=== PATIENT | female | born 1970 | race Caucasian/White ===

== ENCOUNTER 2023-09-01 18:23 | Inpatient (IN) | payer MEDICAID, OTHER ==
[~2023-09-01] VITALS: Ht 167.6 cm; Wt 90.0 kg
[2023-09-01 18:54] LABS: CLARITY URINE CLEAR (CLEAR); COLOR URINE YELLOW (YELLOW); GLUCOSE URINE 3+ (NEGATIVE); KETONES URINE TRACE (NEGATIVE); LEUKOCYTE ESTERASE URINE NEGATIVE (NEGATIVE); NITRITE URINE NEGATIVE (NEGATIVE); OCCULT BLOOD URINE NEGATIVE (NEGATIVE); PROTEIN URINE NEGATIVE (NEGATIVE); SPECIFIC GRAVITY URINE 1.038 (1.005-1.030); UROBILINOGEN URINE 0.2 E.U./dL (0.2-1.0)
[2023-09-01 19:23] LABS: BASOPHILS % 0.4 % (0.0-2.0); EOSINOPHILS % 1.8 % (0.0-5.0); HEMATOCRIT. 43.9 % (36.0-48.0); HEMOGLOBIN. 14.1 g/dL (12.0-16.0); LYMPHOCYTES % 30.5 % (20.0-50.0); MEAN CORPUSCULAR HEMOGLOBIN 27.3 pg (28.0-32.0); MEAN CORPUSCULAR VOLUME 85.4 fL (81.0-99.0); MEAN PLATELET VOLUME 11.6 fl (7.4-10.4); MONOCYTES % 7.2 % (2.0-8.0); NEUTROPHILS % 60.1 % (40.0-76.0); PLATELET 144 x1000/uL (130-400); RED BLOOD CELL COUNT 5.15 mill/uL (4.2-5.4); RED CELL DISTRIBUTION WIDTH 14.5 % (11.6-14.6); WHITE BLOOD COUNT 6.9 x1000/uL (4.5-11.0)
[2023-09-01 19:27] LABS: CHLORIDE 91 mEq/L (98-107); POTASSIUM 4.3 mEq/L (3.5-5.1); SODIUM 124 mEq/L (136-145)
[2023-09-01 19:28] LABS: CALCIUM 9.1 mg/dL (8.7-10.4); CARBON DIOXIDE 25 mEq/L (21-32)
[2023-09-01 19:29] LABS: RBC URINE NONE SEEN /hpf (0-2); WBC URINE NONE SEEN /hpf (0-2)
[2023-09-01 19:30] LABS: BACTERIA URINE NONE SEEN; SQUAMOUS EPITHELIAL CELL URINE NONE SEEN /lpf (RARE/1+)
[2023-09-01 19:33] LABS: CREATININE 1.3 mg/dL (0.6-1.0); UREA NITROGEN BLOOD 7 mg/dL (9-23)
[2023-09-01 19:35] LABS: ALANINE AMINOTRANSFERASE 34 IU/L (10-49); ALBUMIN 4.4 g/dL (3.2-4.8); ASPARTATE AMINOTRANSFERASE 31 IU/L (<34); BILIRUBIN DIRECT 0.1 mg/dL (<=3.0); BILIRUBIN TOTAL 0.5 mg/dL (0.1-1.0); PROTEIN TOTAL 7.3 g/dL (6.0-8.3)
[2023-09-01 19:46] LABS: GLUCOSE 701 mg/dL (70-105)
[2023-09-01] MEDS: INSULIN REGULAR (HUMULIN R) 300UNITS/3ML VIAL IV ONE (21:45)
[2023-09-01] MEDS: SODIUM CHLORIDE 0.9% 1,000 ML IV ONE (22:41)
[2023-09-02] MEDS: SODIUM CHLORIDE 0.9% 1,000 ML IV ONE (00:21)
[2023-09-02] MEDS: INSULIN REGULAR (HUMULIN R) 300UNITS/3ML VIAL IV ONE (00:24)
[2023-09-02 08:00] VITALS: BP 155/90; PULSE 60; TEMP 98.1
[2023-09-02] MEDS ORDERED: ONDANSETRON HCL 4MG/2ML INJ IV PRN (08:45)
[2023-09-02] MEDS ORDERED: CLONIDINE 0.1MG TABLET PO PRN (08:45)
[2023-09-02] MEDS ORDERED: IPRATROPIUM/ALBUTEROL 0.5-3(2.5)MG/3ML NEB HHN PRN (08:45)
[2023-09-02] MEDS ORDERED: DEXTROSE 50% WATER 50ML SYRINGE IV PRN (08:45)
[2023-09-02] MEDS ORDERED: DIPHENHYDRAMINE 50MG/ML VIAL IV PRN (08:45)
[2023-09-02] MEDS: BLOOD SUGAR DIAGNOSTIC STRIP TEST SCH (10:29)
[2023-09-02 12:00] VITALS: BP_SYST 165; BP_SYST 173; BP_DIAS 80; BP_DIAS 87; PULSE 68; PULSE 70; RESP 18; RESP 20; TEMP 97.3; TEMP 97.9
[2023-09-02] MEDS: INSULIN LISPRO 100 UNITS/ML SUBCUT SCH (12:23)
[2023-09-02 16:00] VITALS: BP 165/80; PULSE 70; RESP 18; TEMP 97.3
[2023-09-02] MEDS: ACETAMINOPHEN 325MG TABLET PO PRN (17:54)
[2023-09-02 20:00] VITALS: BP 149/92; PULSE 90; RESP 18; TEMP 99.1
[2023-09-02] MEDS: INSULIN GLARGINE 100 UNITS/ML SUBCUT SCH (22:34)
[2023-09-03] VITALS: BP 141/85; PULSE 69; RESP 18; TEMP 97.9
[2023-09-03 04:00] VITALS: BP 150/90; PULSE 74; RESP 18; TEMP 98.8
[2023-09-03 07:00] LABS: BASOPHILS % 0.4 % (0.0-2.0); EOSINOPHILS % 2.6 % (0.0-5.0); HEMATOCRIT. 40.4 % (36.0-48.0); HEMOGLOBIN. 13.2 g/dL (12.0-16.0); LYMPHOCYTES % 29.3 % (20.0-50.0); MEAN CORPUSCULAR HEMOGLOBIN 26.9 pg (28.0-32.0); MEAN CORPUSCULAR HGB CONC 32.8 g/dL (31.0-37.0); MEAN PLATELET VOLUME 11.8 fl (7.4-10.4); MONOCYTES % 6.5 % (2.0-8.0); NEUTROPHILS % 61.2 % (40.0-76.0); PLATELET 128 x1000/uL (130-400); RED BLOOD CELL COUNT 4.93 mill/uL (4.2-5.4); RED CELL DISTRIBUTION WIDTH 14.4 % (11.6-14.6); WHITE BLOOD COUNT 7.7 x1000/uL (4.5-11.0)
[2023-09-03 07:02] LABS: CHLORIDE 101 mEq/L (98-107); POTASSIUM 3.6 mEq/L (3.5-5.1); SODIUM 133 mEq/L (136-145)
[2023-09-03 07:03] LABS: CARBON DIOXIDE 23 mEq/L (21-32)
[2023-09-03 07:04] LABS: CALCIUM 8.7 mg/dL (8.7-10.4)
[2023-09-03 07:08] LABS: CREATININE 0.7 mg/dL (0.6-1.0); GLUCOSE 320 mg/dL (70-105); UREA NITROGEN BLOOD 13 mg/dL (9-23)
[2023-09-03 08:00] VITALS: BP 183/99; PULSE 72; RESP 20; TEMP 97.9
[2023-09-03] MEDS ORDERED: LANTUSUD SUBCUT (11:34)
[2023-09-03] MEDS ORDERED: LOSA50TA41 PO (11:34)
[2023-09-03] MEDS ORDERED: INSLIS SUBCUT (11:34)
[2023-09-03 12:00] VITALS: BP 156/101; PULSE 91; RESP 18; TEMP 97.5
[2023-09-03] MEDS: LOSARTAN 50 MG TABLET PO SCH (12:26)
[2023-09-03] MEDS: INSULIN GLARGINE 100 UNITS/ML SUBCUT SCH (12:27)
[2023-09-03] MEDS: INSULIN LISPRO 100 UNITS/ML SUBCUT SCH (12:28)
[2023-09-03 15:07] VITALS: BP 145/89; PULSE 89; TEMP 97.7; O2SAT 98
[2023-09-03 16:00] VITALS: BP 140/92; PULSE 81; RESP 18; TEMP 97.3
[2023-09-03 17:48] LABS: T4 FREE 1.23 ng/dL (0.89-1.76)
[2023-09-03 17:49] LABS: THYROID STIMULATING HORMONE 2.1 uIU/mL (0.55-4.78)
== END 2023-09-03 19:02 | disposition home or self-care (01) | DRG 420 ==
LOC: ER 18:23 → 6EST 23:53 → EDBEDREQ 09-02 00:15
PROVIDERS: ADMIT Internal Medicine; ATTEND Internal Medicine
DX: E11.65 Type 2 diabetes mellitus with hyperglycemia (principal); K76.0 Fatty (change of) liver, not elsewhere classified; R16.0 Hepatomegaly, not elsewhere classified; I10 Essential (primary) hypertension; E78.5 Hyperlipidemia, unspecified; F17.210 Nicotine dependence, cigarettes, uncomplicated; E66.01 Morbid (severe) obesity due to excess calories; Z68.32 Body mass index [BMI] 32.0-32.9, adult; N85.2 Hypertrophy of uterus; Z83.3 Family history of diabetes mellitus
CPT/HCPCS: 36415; 74176; 80048; 80076; 81003; 82010; 82962; 83036; 84439; 84443; 85025; 86850; 86900; 93005; 93970; 99291; J1815; J7030